=== PATIENT | female | born 1985 | race American Indian/Alaskan Native ===

== ENCOUNTER 2018-07-14 19:45 | Emergency (ER) | payer MEDICAID ==
[~2018-07-14] VITALS: Ht 160 cm; Wt 127.9 kg
--- OUTSIDE RECORDS SUMMARY | 2018-07-14 19:48 | XMS ---
PreManage Notification: BRIANNA TATUM Security Sheriffs Events No recent Security Events currently on file CRITERIA MET - [facility] CARE PROVIDERS There are no care providers on record at this time. [facility] has no Care Guidelines for this patient. [place] [facility] (12 MO.) [facility] TOTAL 2 NOTE: Visits indicate total known visits. ED/C VISIT TRACKING (12 MO.) 07/14/2018 19:46 [facility] [place] TYPE: Emergency COMPLAINT: - FEVER,COUGH,BODY ACHES [facility] DIAGNOSES: - Nausea - Bronchitis, not specified as acute or chronic - Vomiting (Severe) - Generalized Body Aches - Acute upper respiratory infection, unspecified - Cough 07/20/2017 14:06 [facility] TYPE: Urgent Care DIAGNOSES: - Cough - cough; body aches - Flu Like Symptoms - Nausea with vomiting, unspecified - Pneumonia, unspecified organism INPATIENT VISIT TRACKING (12 MO.) No inpatient visits to display in this time frame [email or web address]
[2018-07-14] MEDS ORDERED: DULOXETINE HCL60 MG PO (20:31)
[2018-07-14] MEDS ORDERED: ABILIFY MYCITE20 MG PO (20:32)
[2018-07-14] MEDS ORDERED: PRAZOSIN HCL1 MG PO (20:32)
[2018-07-14] MEDS ORDERED: ZANAFLEX4 M1 PO (20:32)
[2018-07-14] MEDS ORDERED: ZOLPIDEM TARTRA10 MG PO (20:33)
[2018-07-14] MEDS ORDERED: NORCO 5-325 TA1 EACH PO (21:19)
== END 2018-07-14 21:45 | disposition home or self-care (01) ==
LOC: ED 19:45
DX: J10.1 Influenza due to other identified influenza virus with other respiratory manifestations (principal); Z87.891 Personal history of nicotine dependence; Z88.0 Allergy status to penicillin; Z88.1 Allergy status to other antibiotic agents; Z79.899 Other long term (current) drug therapy
CPT/HCPCS: 71046; 87502; 96372; 99283-25; J1885